=== PATIENT | male | born 1955 | race Caucasian/White ===

== ENCOUNTER 2021-05-27 11:03 | Emergency (ER) | payer MEDICARE, OTHER ==
[~2021-05-27] VITALS: Ht 193 cm; Wt 108.0 kg
[2021-05-27 11:58] VITALS: BP 123/88
[2021-05-27] MEDS ORDERED: ONDANSETRON ODT 4 MG TAB PO ONE (12:45)
[2021-05-27] MEDS ORDERED: HYDROcodone-ACET 5/325MG TAB PO ONE (12:45)
[2021-05-27] MEDS ORDERED: cefTRIAXone SOD 1,000 MG VL IM ONE (12:45)
[2021-05-27] MEDS ORDERED: CLIN300C8 PO (12:47)
[2021-05-27] MEDS ORDERED: ACE3T PO (12:47)
== END 2021-05-27 13:08 | disposition home or self-care (01) ==
LOC: ER 11:03
DX: M17.11 Unilateral primary osteoarthritis, right knee (principal); M25.461 Effusion, right knee; Z90.49 Acquired absence of other specified parts of digestive tract; Z79.2 Long term (current) use of antibiotics; Z79.899 Other long term (current) drug therapy
CPT/HCPCS: 73562; 96372; 99283; J0696; Q0162